=== PATIENT | male | born 1975 | race Caucasian/White ===

== ENCOUNTER 2017-06-20 18:41 | Observation (INO) | payer OTHER ==
[~2017-06-20] VITALS: Ht 190.5 cm; Wt 106.3 kg
[2017-06-20 19:14] VITALS: BP 142/86; PULSE 101; RESP 20; TEMP 99.2; O2SAT 97
--- NOTE | 2017-06-20 20:08 | PD ---
HPI Chief Complaint: Diabetic Time Seen by Provider: 20:01 Travel History International Travel<30 days: No Contact w/Intl Traveler<30days: No Traveled to known affect area: No History of Present Illness HPI This is a 42-year-old male with a history of hypertension, diabetes mellitus, presents today with complaints of blurry vision and elevated blood sugar. Patient states that his blood sugar has been extremely elevated over the last several days. Patient reports that he used to drink several sugary sodas a day. He states that he recently went off of his sodas however despite that he started noticing his blurry vision. He takes metformin 1000 mg twice daily. He reports polyuria and polydipsia. He denies any nausea vomiting. He does report just generalized malaise. PFSH Past Medical History Cardiovascular Problems: Yes (HTN) Diabetes: Yes Social History Tobacco Use: No Allergies-Medications (Allergen,Severity, Reaction): Coded Allergies: amoxicillin (Verified Allergy, Mild, vomiting, 06/20/17) vomiting, fever, sweat Review of Systems Except as stated in HPI: all other systems reviewed are Neg General / Constitutional: No: Fever, Chills Eyes: Positive: Blurred Vision, No: Pain HENT: No: Headaches, Lightheadedness, Neck Pain Cardiovascular: No: Chest Pain or Discomfort, Palpitations Respiratory: No: Cough, Shortness of Breath Gastrointestinal: No: Nausea, Vomiting, Abdominal Pain Genitourinary: Positive: Frequency, No: Dysuria Musculoskeletal: No: Weakness, Edema, Pain Neurologic: No: Weakness, Dizziness, Change in Mentation Endocrine: Positive: Polyuria, Polydipsia Physical Exam Narrative GENERAL: Well-developed well-nourished male in no acute respiratory distress. SKIN: Focused skin assessment warm/dry. HEAD: Atraumatic. Normocephalic. EYES: Pupils equal and round. No scleral icterus. No injection or drainage. ENT: No nasal bleeding or discharge. Mucous membranes pink and dry. NECK: Trachea midline. Supple. CARDIOVASCULAR: Regular rate and rhythm. No murmur appreciated. RESPIRATORY: No accessory muscle use. Clear to auscultation. Breath sounds equal bilaterally. GASTROINTESTINAL: Abdomen soft, non-tender, nondistended. Hepatic and splenic margins not palpable. MUSCULOSKELETAL: No obvious deformities. No clubbing. No cyanosis. No edema. NEUROLOGICAL: Awake and alert. No obvious cranial nerve deficits. Motor grossly within normal limits. Normal speech. Data Data Last Documented VS Vital Signs Date Time Temp Pulse Resp B/P (MAP) Pulse Ox O2 Delivery O2 Flow Rate FiO2 06/20/17 21:17 92 18 136/85 (102) 95 Room Air 06/20/17 19:14 99.2 Orders Orders Complete Blood Count With Diff (06/20/17 20:02) Comprehensive Metabolic Panel (06/20/17 20:02) Urinalysis - C+S If Indicated (06/20/17 20:02) Beta Hydroxybutyrate (Acetone) (06/20/17 20:02) Iv Access Insert/Monitor (06/20/17 20:02) Ecg Monitoring (06/20/17 20:02) Oximetry (06/20/17 20:02) Lactic Acid (06/20/17 20:02) Insulin Human Regular Inj (Novolin R Inj (06/20/17 20:15) Sodium Chlor 0.9% 1000 Ml Inj (Ns 1000 M (06/20/17 20:15) Sodium Chlor 0.9% 1000 Ml Inj (Ns 1000 M (06/20/17 21:00) Insulin Human Regular Inj (Novolin R Inj (06/20/17 21:00) Sodium Chlor 0.9% 1000 Ml Inj (Ns 1000 M (06/20/17 22:00) Blood Glucose Goal (Criteria) (06/20/17 21:55) Hypoglycemia 70 Mg/Dl Or < (06/20/17 21:55) Notify Dr: Other (06/20/17 21:55) Dextrose 50% In [place] (Vial) Inj (D50w (Vi (06/20/17 22:00) Glucagon Inj (Glucagon Inj) (06/20/17 22:00) Insulin Human Reg Supp Scale (Novolin R (06/21/17 08:00) Admit Order (Ed Use Only) (06/20/17 21:56) Labs Laboratory Tests Test 06/20/17 19:50 06/20/17 19:58 Urine Color YELLOW Urine Turbidity CLEAR Urine pH 6.0 Urine Specific [place] LESS/EQUAL 1.005 Urine Protein NEG mg/dL Urine Glucose (UA) 1000 OR GREATER mg/dL Urine Ketones TRACE mg/dL Urine Occult Blood NEG Urine Nitrite NEG Urine Bilirubin NEG Urine Urobilinogen 0.2 MG/DL Urine Leukocyte Esterase NEG Urine RBC 0-3 /hpf Urine WBC 0-2 /hpf Urine Squamous Epithelial Cells 0-5 /hpf Microscopic Urinalysis Comment CULT NOT INDICATED White Blood Count 12.8 TH/MM3 Red Blood Count 5.75 MIL/MM3 Hemoglobin 16.4 GM/DL Hematocrit 47.8 % Mean Corpuscular Volume 83.1 FL Mean Corpuscular Hemoglobin 28.5 PG Mean Corpuscular Hemoglobin Concent 34.3 % Red Cell Distribution Width 12.4 % Platelet Count 249 TH/MM3 Mean Platelet Volume 11.6 FL Neutrophils (%) (Auto) 85.1 % Lymphocytes (%) (Auto) 8.5 % Monocytes (%) (Auto) 5.7 % Eosinophils (%) (Auto) 0.4 % Basophils (%) (Auto) 0.3 % Neutrophils # (Auto) 10.9 TH/MM3 Lymphocytes # (Auto) 1.1 TH/MM3 Monocytes # (Auto) 0.7 TH/MM3 Eosinophils # (Auto) 0.1 TH/MM3 Basophils # (Auto) 0.0 TH/MM3 CBC Comment DIFF FINAL Differential Comment Blood Urea Nitrogen 18 MG/DL Creatinine 1.40 MG/DL Random Glucose 648 MG/DL Total Protein 8.5 GM/DL Albumin 4.5 GM/DL Calcium Level 9.6 MG/DL Alkaline Phosphatase 168 U/L Aspartate Amino Transf (AST/SGOT) 51 U/L Alanine Aminotransferase (ALT/SGPT) 125 U/L Total Bilirubin 0.8 MG/DL Sodium Level 120 MEQ/L Potassium Level 4.1 MEQ/L Chloride Level 81 MEQ/L Carbon Dioxide Level 27.0 MEQ/L Anion Gap 12 MEQ/L Estimat Glomerular Filtration Rate 55 ML/MIN Lactic Acid Level 1.3 mmol/L B-Hydroxybutyrate 1.82 MMOL/L [facility] Medical Decision Making Medical Screen Exam Complete: Yes Emergency Medical Condition: Yes Differential Diagnosis Uncontrolled hyperglycemia versus HONKA versus renal injury Narrative Course 42-year-old male with history of type 2 diabetes mellitus, hypertension, who presents today with complaints of blurry vision, lightheadedness, general malaise. Patient's blood sugar was critically high. Formal blood sugar was 648. He has been given 2 L of IV fluid and a total of 18 units of regular insulin. Despite this his blood sugar still in the 400s. Patient's sodium is also noted to be 120. His BUN and creatinine are also elevated as are his LFTs. The patient will be admitted under observation for blood glucose control and replacement of his sodium. Case was discussed with Dr. Matthieu Jones, [facility], who agrees with the placement. The patient will be placed on a sliding scale. He has been started now at 125 cc of normal saline after 2 L of IV fluids. Diagnosis Primary Impression: Uncontrolled diabetes mellitus with hyperglycemia Additional Impressions: Hyponatremia Kidney injury Elevated liver enzymes Admitting Information Admitting Physician Requests: Observation Puma Monique MD Jun 20, 2017 20:08
[2017-06-20 20:09] VITALS: BP 149/91; PULSE 86; RESP 18; O2SAT 95
[2017-06-20] MEDS ORDERED: INSULIN HUMAN REGULAR 1,000 UNITS/10 ML VIAL IV PUSH ONE ×2 (20:15→21:00)
[2017-06-20] MEDS ORDERED: SODIUM CHLOR 0.9% 1000 ML INJ 1,000 ML IV ONE ×2 (20:15→21:00)
[2017-06-20 20:22] LABS: AUTOMATED NEUTROPHIL # 10.9 TH/MM3 (1.8-7.7); BASOPHIL % 0.3 % (0.0-2.0); EOSINOPHIL # 0.1 TH/MM3 (0-0.4); EOSINOPHIL % 0.4 % (0.0-4.0); HEMATOCRIT 47.8 % (39.0-51.0); HEMOGLOBIN 16.4 GM/DL (13.0-17.0); LYMPH % 8.5 % (9.0-44.0); LYMPHOCYTE # 1.1 TH/MM3 (1.0-4.8); MEAN CELL VOLUME 83.1 FL (80.0-100.0); MEAN CORPUSCULAR HEMOGLOBIN 28.5 PG (27.0-34.0); MEAN CORPUSCULAR HGB CONC 34.3 % (32.0-36.0); MEAN PLATELET VOLUME 11.6 FL (7.0-11.0); MONO % 5.7 % (0.0-8.0); MONOCYTE # 0.7 TH/MM3 (0-0.9); NEUT % 85.1 % (16.0-70.0); PLATELET COUNT 249 TH/MM3 (150-450); RED BLOOD COUNT 5.75 MIL/MM3 (4.50-5.90); RED CELL DISTRIBUTION WIDTH 12.4 % (11.6-17.2); WHITE BLOOD COUNT 12.8 TH/MM3 (4.0-11.0)
[2017-06-20 20:23] LABS: BILIRUBIN, URINE NEG (NEG); BLOOD, URINE NEG (NEG); GLUCOSE,URINE 1000 OR GREATER mg/dL (NEG); KETONE, URINE TRACE mg/dL (NEG); NITRITE,URINE NEG (NEG); URINE COLOR YELLOW (YELLW/STRAW); URINE LEUKOCYTE ESTERASE NEG (NEG)
[2017-06-20 20:35] LABS: RBC, URINE 0-3 /hpf (0-3); SQUAMOUS EPITHELIAL CELL URINE 0-5 /hpf (0-5); WBC, URINE 0-2 /hpf (0-5)
[2017-06-20 20:53] LABS: ALBUMIN 4.5 GM/DL (3.4-5.0); ALKALINE PHOSPHATASE 168 U/L (45-117); ALT (GPT) 125 U/L (12-78); AST (GOT) 51 U/L (15-37); BLOOD UREA NITROGEN 18 MG/DL (7-18); CALCIUM 9.6 MG/DL (8.5-10.1); CHLORIDE 81 MEQ/L (98-107); GLOMERULAR FILTRATION RATE 55 ML/MIN (>89); TOTAL BILIRUBIN ADULT 0.8 MG/DL (0.2-1.0); TOTAL PROTEIN 8.5 GM/DL (6.4-8.2)
[2017-06-20 20:54] LABS: GLUCOSE,RANDOM 648 MG/DL (74-106)
[2017-06-20 20:55] LABS: SODIUM (NA) 120 MEQ/L (136-145)
[2017-06-20 21:17] VITALS: BP 136/85; PULSE 92; RESP 18; O2SAT 95
[2017-06-20] MEDS ORDERED: GLUCAGON 1 MG/ML VIAL OTHER PRN (22:00)
[2017-06-20] MEDS ORDERED: DEXTROSE 50% IN WATER 50 ML VIAL(D50) IV PUSH PRN (22:00)
[2017-06-20 22:14] VITALS: BP 138/79; PULSE 87; RESP 18; O2SAT 95
[2017-06-20] MEDS ORDERED: VENL150C39 PO (22:20)
[2017-06-20] MEDS ORDERED: ABIL10TA8 PO (22:20)
[2017-06-20] MEDS ORDERED: METF1000 PO (22:20)
[2017-06-20] MEDS ORDERED: FOLI400T PO (22:20)
[2017-06-20] MEDS ORDERED: HYDR12.56 PO (22:20)
[2017-06-20] MEDS ORDERED: PRED5PAK PO (22:20)
[2017-06-20] MEDS ORDERED: CEFU1TAB20 PO (22:20)
[2017-06-20] MEDS ORDERED: LISI-515 PO (22:20)
[2017-06-20] MEDS: SODIUM CHLOR 0.9% 1000 ML INJ 1,000 ML IV SCH (22:48)
[2017-06-20] MEDS: INSULIN NovoLIN REGULAR SUPPLEMENTAL SCALE SQ SCH (23:59)
[2017-06-21] MEDS ORDERED: ONDANSETRON HCL 4 MG/2 ML VIAL IVP PRN
[2017-06-21] MEDS ORDERED: NALOXONE HCL 0.4 MG/ML AMP IV PUSH PRN
[2017-06-21] MEDS ORDERED: SENNOSIDES 8.6 MG TAB PO PRN
[2017-06-21] MEDS ORDERED: LACTULOSE SYRUP 20 GM/30 ML CUP PO PRN
[2017-06-21] MEDS ORDERED: BISACODYL 10 MG SUPP RECTAL PRN
[2017-06-21] MEDS ORDERED: MAGNESIUM HYDROXIDE SUSP 30 ML CUP PO PRN
[2017-06-21] MEDS ORDERED: SODIUM CHLORIDE 0.9% FLUSH 10 ML FLUSH IV FLUSH PRN
[2017-06-21] MEDS: SODIUM CHLOR 0.9% 1000 ML INJ 1,000 ML IV SCH ×4 (00:03→12:57)
[2017-06-21 00:04] VITALS: BP 140/82; PULSE 90; RESP 18; O2SAT 96
--- NOTE | 2017-06-21 00:05 | HHI.HP ---
HPI Service [facility] Hospitalists Primary Care Physician Myrtle Kim MD Admission Diagnosis uncontrolled hyperglycemia, hyponatremia, kidney injury Chief Complaint: elevated blood glucose blurred vision today Travel History International Travel<30 Days: No Contact w/Intl Traveler <30 Da: No Traveled to Known Affected Are: No History of Present Illness This is a 42-year-old male with a history of hypertension, diabetes mellitus, presents today with complaints of blurry vision and elevated blood sugar. Patient states that his blood sugar has been extremely elevated over the last several days. Patient reports that he used to drink several sugary sodas a day. He states that he recently went off of his sodas however despite that he started noticing his blurry vision. He takes metformin 1000 mg twice daily. He reports polyuria and polydipsia. He denies any nausea vomiting. He does report just generalized malaise. Patient has not had sugar checked in over 1 year and at that time was 250,he had recent uri sore throat severe and was started on prednisone and ceftin with improvement in sore throat but may be contributing to his elevated glucose. Patient is compliant with his medications . Since treatment in ER feeling a little better was to try and eat something blood sugar at 350 now from >600. Patient states was heavy drinker in past none over 15 years and has liver disease with elevated LFT told had cirrhosis. Review of Systems Eyes: COMPLAINS OF: Blurred vision Gastrointestinal: COMPLAINS OF: Nausea Genitourinary: COMPLAINS OF: Urinary frequency Past Family Social History Past Medical History diabetes,depression ,anxiety recent uri hypertension Past Surgical History none Reported Medications abilify [id number] lisinopril 20 folic acid 1mg Allergies: Coded Allergies: amoxicillin (Verified Allergy, Mild, vomiting, 06/20/17) vomiting, fever, sweat Social History former etoh Physical Exam Vital Signs Vital Signs Date Time Temp Pulse Resp B/P (MAP) Pulse Ox O2 Delivery O2 Flow Rate FiO2 06/20/17 22:14 87 18 138/79 (98) 95 Room Air 06/20/17 21:17 92 18 136/85 (102) 95 Room Air 06/20/17 20:09 86 18 149/91 (110) 95 Room Air 06/20/17 19:40 18 98 Room Air 06/20/17 19:14 99.2 101 20 142/86 (104) 97 Physical Exam GENERAL: This is a well-nourished, well-developed patient, in no apparent distress. SKIN: No rashes, ecchymoses or lesions. Cool and dry. HEAD: Atraumatic. Normocephalic. No temporal or scalp tenderness. EYES: Pupils equal round and reactive. Extraocular motions intact. No scleral icterus. No injection or drainage. ENT: Nose without bleeding, purulent drainage or septal hematoma. Throat without erythema, tonsillar hypertrophy or exudate. Uvula midline. Airway patent. NECK: Trachea midline. No JVD or lymphadenopathy. Supple, nontender, no meningeal signs. CARDIOVASCULAR: Regular rate and rhythm without murmurs, gallops, or rubs. RESPIRATORY: Clear to auscultation. Breath sounds equal bilaterally. No wheezes , rales, or rhonchi. GASTROINTESTINAL: Abdomen soft, non-tender, nondistended. No hepato-splenomegaly , or palpable masses. No guarding. MUSCULOSKELETAL: Extremities without clubbing, cyanosis, or edema. No joint tenderness, effusion, or edema noted. No calf tenderness. Negative Homans sign bilaterally. NEUROLOGICAL: Awake and alert. Cranial nerves II through XII intact. Motor and sensory grossly within normal limits. Five out of 5 muscle strength in all muscle groups. Normal speech. Laboratory Laboratory Tests Test 06/20/17 19:50 06/20/17 19:58 Urine Color YELLOW Urine Turbidity CLEAR Urine pH 6.0 Urine Specific [employer] LESS/EQUAL 1.005 Urine Protein NEG Urine Glucose (UA) 1000 OR GREATER Urine Ketones TRACE Urine Occult Blood NEG Urine Nitrite NEG Urine Bilirubin NEG Urine Urobilinogen 0.2 Urine Leukocyte Esterase NEG Urine RBC 0-3 Urine WBC 0-2 Urine Squamous Epithelial Cells 0-5 Microscopic Urinalysis Comment CULT NOT INDICATED White Blood Count 12.8 Red Blood Count 5.75 Hemoglobin 16.4 Hematocrit 47.8 Mean Corpuscular Volume 83.1 Mean Corpuscular Hemoglobin 28.5 Mean Corpuscular Hemoglobin Concent 34.3 Red Cell Distribution Width 12.4 Platelet Count 249 Mean Platelet Volume 11.6 Neutrophils (%) (Auto) 85.1 Lymphocytes (%) (Auto) 8.5 Monocytes (%) (Auto) 5.7 Eosinophils (%) (Auto) 0.4 Basophils (%) (Auto) 0.3 Neutrophils # (Auto) 10.9 Lymphocytes # (Auto) 1.1 Monocytes # (Auto) 0.7 Eosinophils # (Auto) 0.1 Basophils # (Auto) 0.0 CBC Comment DIFF FINAL Differential Comment Blood Urea Nitrogen 18 Creatinine 1.40 Random Glucose 648 Total Protein 8.5 Albumin 4.5 Calcium Level 9.6 Alkaline Phosphatase 168 Aspartate Amino Transf (AST/SGOT) 51 Alanine Aminotransferase (ALT/SGPT) 125 Total Bilirubin 0.8 Sodium Level 120 Potassium Level 4.1 Chloride Level 81 Carbon Dioxide Level 27.0 Anion Gap 12 Estimat Glomerular Filtration Rate 55 Lactic Acid Level 1.3 B-Hydroxybutyrate 1.82 Result Diagram: 06/20/17195706/20/171957 Course 3liters fluid given in er and sliding scale Caprini VTE Risk Assessment Caprini VTE Risk Assessment: No/Low Risk (score <= 1) Caprini Risk Assessment Model Point Value = 1 Point Value = 2 Point Value = 3 Point Value = 5 Age 41-60 Minor surgery BMI > 25 kg/m2 Swollen legs Varicose veins or History of unexplained or recurrent spontaneous Oral contraceptives or hormone replacement Sepsis (< 1 month) Serious lung disease, including pneumonia (< 1 month) Abnormal pulmonary function Acute myocardial infarction Congestive heart failure (< 1 month) History of inflammatory bowel disease Medical patient at bed rest Age 61-74 Arthroscopic surgery Major open surgery (> 45 min) Laparoscopic surgery (> 45 min) Malignancy Confined to bed (> 72 hours) Immobilizing plaster cast Central venous access Age >= 75 History of VTE Family history of VTE Factor V Leiden Prothrombin [id number] Lupus anticoagulant Anticardiolipin antibodies Elevated serum homocysteine Heparin-induced thrombocytopenia Other congenital or acquired thrombophilia Stroke (< 1 month) Elective arthroplasty Hip, pelvis, or leg fracture Acute spinal cord injury (< 1 month) Prophylaxis Regimen Total Risk Factor Score Risk Level Prophylaxis Regimen 0-1 Low Early ambulation 2 Moderate Order ONE of the following: *Sequential Compression Device (SCD) *Heparin 5000 units SQ BID 3-4 Higher Order ONE of the following medications: *Heparin 5000 units SQ TID *Enoxaparin/Lovenox 40 mg SQ daily (WT < 150 kg, CrCl > 30 mL/min) *Enoxaparin/Lovenox 30 mg SQ daily (WT < 150 kg, CrCl > 10-29 mL/min) *Enoxaparin/Lovenox 30 mg SQ BID (WT < 150 kg, CrCl > 30 mL/min) AND/OR *Sequential Compression Device (SCD) 5 or more Highest Order ONE of the following medications: *Heparin 5000 units SQ TID (Preferred with Epidurals) *Enoxaparin/Lovenox 40 mg SQ daily (WT < 150 kg, CrCl > 30 mL/min) *Enoxaparin/Lovenox 30 mg SQ daily (WT < 150 kg, CrCl > 10-29 mL/min) *Enoxaparin/Lovenox 30 mg SQ BID (WT < 150 kg, CrCl > 30 mL/min) AND *Sequential Compression Device (SCD) Assessment and Plan Problem List: (1) Uncontrolled diabetes mellitus with hyperglycemia ICD Codes: E11.65 - Type 2 diabetes mellitus with hyperglycemia Status: Acute Plan: continue IV fluid and sliding scale follow up labs in am (2) Elevated liver enzymes ICD Codes: R74.8 - Abnormal levels of other serum enzymes Status: Chronic Plan: will recheck labs and will get abdominal ultrasound (3) Hyponatremia ICD Codes: E87.1 - Hypo-osmolality and hyponatremia Status: Acute Plan: IV fluid follow up labs (4) Kidney injury ICD Codes: S37.009A - Unspecified injury of unspecified kidney, initial encounter Status: Acute Plan: iv fluid follow up labs Assessment and Plan further plan as case develops Code Status full Discussed Condition With patient and Matthieu Jones MD Jun 21, 2017 00:05
[2017-06-21 00:30] VITALS: BP 167/101; PULSE 73; RESP 18; TEMP 98.2; O2SAT 98
[2017-06-21 04:00] VITALS: BP 157/94; PULSE 71; RESP 18; TEMP 97.5; O2SAT 97
[2017-06-21 07:50] LABS: AUTOMATED NEUTROPHIL # 7.5 TH/MM3 (1.8-7.7); BASOPHIL % 0.2 % (0.0-2.0); EOSINOPHIL # 0.2 TH/MM3 (0-0.4); EOSINOPHIL % 1.4 % (0.0-4.0); HEMATOCRIT 43.4 % (39.0-51.0); HEMOGLOBIN 14.3 GM/DL (13.0-17.0); LYMPH % 24.9 % (9.0-44.0); LYMPHOCYTE # 2.8 TH/MM3 (1.0-4.8); MEAN CELL VOLUME 84.2 FL (80.0-100.0); MEAN CORPUSCULAR HEMOGLOBIN 27.8 PG (27.0-34.0); MEAN PLATELET VOLUME 10.9 FL (7.0-11.0); MONO % 6.6 % (0.0-8.0); MONOCYTE # 0.7 TH/MM3 (0-0.9); NEUT % 66.9 % (16.0-70.0); PLATELET COUNT 191 TH/MM3 (150-450); RED BLOOD COUNT 5.15 MIL/MM3 (4.50-5.90); RED CELL DISTRIBUTION WIDTH 12.5 % (11.6-17.2); WHITE BLOOD COUNT 11.2 TH/MM3 (4.0-11.0)
[2017-06-21 08:25] LABS: ALBUMIN 3.6 GM/DL (3.4-5.0); ALKALINE PHOSPHATASE 95 U/L (45-117); ALT (GPT) 94 U/L (12-78); AST (GOT) 34 U/L (15-37); BICARBONATE 26.4 MEQ/L (21.0-32.0); BLOOD UREA NITROGEN 15 MG/DL (7-18); CALCIUM 8.2 MG/DL (8.5-10.1); CHLORIDE 94 MEQ/L (98-107); CREATININE 0.92 MG/DL (0.60-1.30); GLOMERULAR FILTRATION RATE 89 ML/MIN (>89); GLUCOSE,RANDOM 263 MG/DL (74-106); SODIUM (NA) 130 MEQ/L (136-145); TOTAL BILIRUBIN ADULT 0.7 MG/DL (0.2-1.0)
[2017-06-21 08:50] VITALS: BP 161/100; PULSE 84; TEMP 96.6; O2SAT 98
[2017-06-21] MEDS ORDERED: LISINOPRIL 20 MG TAB PO SCH (09:00)
[2017-06-21] MEDS ORDERED: DOCUSATE SODIUM 50 MG/SENNA 8.6 MG TAB PO SCH (09:00)
[2017-06-21] MEDS ORDERED: FOLIC ACID 1 MG TAB PO SCH (09:00)
[2017-06-21] MEDS ORDERED: VENLAFAXINE HCL XR 75 MG CAP PO SCH (09:00)
[2017-06-21] MEDS ORDERED: ARIPiprazole 10 MG TAB PO SCH (09:00)
[2017-06-21] MEDS ORDERED: SODIUM CHLORIDE 0.9% FLUSH 10 ML FLUSH IV FLUSH SCH (09:00)
[2017-06-21] MEDS ORDERED: CEFUROXIME AXETIL 500 MG TAB PO SCH (09:00)
--- NOTE | 2017-06-21 09:10 | RADRPT ---
EXAM DATE/TIME: 06/21/2017 07:54 [place] COMPARISON: No previous studies available for comparison. INDICATIONS : Elevated LFT's. ton. MEDICAL HISTORY : Hypertension. Diabetes mellitus type 2. SURGICAL HISTORY : Right hand surgery. ENCOUNTER: Initial ACUITY: 2 days PAIN SCORE: 1/10 LOCATION: Bilateral upper quadrant MEASUREMENTS: LIVER: 19.6 cm cm length COMMON DUCT: 7 mm RIGHT KIDNEY: 12.3 x 5.3 x 5.6 cm LEFT KIDNEY: 12.6 x 6.3 x 6.8 cm SPLEEN: 11.5 cm length AORTA: 2.2cm maximal FINDINGS: LIVER: Diffusely increased echogenicity suggesting steatosis. No focal mass. No biliary ductal dilatation. COMMON DUCT: No intraluminal mass or stone visualized. GALLBLADDER: Contains no stones, demonstrates no wall thickening or pericholecystic fluid. PANCREAS: The visualized portions are within normal limits. RIGHT KIDNEY: No hydronephrosis, stone or mass. LEFT KIDNEY: No hydronephrosis, stone or mass. SPLEEN: No focal lesion. AORTA: Non aneurysmal. IVC: Within normal limits. CONCLUSION: Increased hepatic echogenicity suggesting steatosis. Isidro Austin MD on June 21, 2017 at 9:03 Board Certified Radiologist. This report was verified electronically.
[2017-06-21] MEDS ORDERED: metFORMIN HCL 500 MG TAB PO ONE (10:45)
--- NOTE | 2017-06-21 10:58 | HHI.PR ---
Subjective Remarks Patient feeling better some blurred vision ,glucose at 268 ,kidney function back to normal ,liver function improved ,will restart metformin if high as out patient consider adding jardiance discussed diet compliance with patient ,as still with some blurred vision will but now just to watching tv will need to see Ophthalmology as out patient also WBC count improved. Objective Vitals GENERAL: SKIN: Warm and dry. HEAD: Atraumatic. Normocephalic. EYES: Pupils equal and round. No scleral icterus. No injection or drainage. ENT: No nasal bleeding or discharge. Mucous membranes pink and moist. NECK: Trachea midline. No JVD. CARDIOVASCULAR: Regular rate and rhythm. RESPIRATORY: No accessory muscle use. Clear to auscultation. Breath sounds equal bilaterally. GASTROINTESTINAL: Abdomen soft, non-tender, nondistended. Hepatic and splenic margins not palpable. MUSCULOSKELETAL: Extremities without clubbing, cyanosis, or edema. No obvious deformities. NEUROLOGICAL: Awake and alert. No obvious cranial nerve deficits. Motor grossly within normal limits. Five out of 5 muscle strength in the arms and legs. Normal speech. PSYCHIATRIC: Appropriate mood and affect; insight and judgment normal. Vital Signs Date Time Temp Pulse Resp B/P (MAP) Pulse Ox O2 Delivery O2 Flow Rate FiO2 06/21/17 08:50 96.6 84 161/100 (120) 98 06/21/17 04:00 97.5 71 18 157/94 (115) 97 06/21/17 00:30 98.2 73 18 167/101 (123) 98 06/21/17 00:15 90 18 96 06/21/17 00:04 90 18 140/82 (101) 96 Room Air 06/20/17 22:14 87 18 138/79 (98) 95 Room Air 06/20/17 21:17 92 18 136/85 (102) 95 Room Air 06/20/17 20:09 86 18 149/91 (110) 95 Room Air 06/20/17 19:40 18 98 Room Air 06/20/17 19:14 99.2 101 20 142/86 (104) 97 06/21/17 06/21/17 06/22/17 15:00 23:00 07:00 Intake Total 240 ml Balance 240 ml Intake Oral 240 ml Result Diagram: 06/21/1770406/21/17704 A/P Problem List: (1) Uncontrolled diabetes mellitus with hyperglycemia ICD Codes: E11.65 - Type 2 diabetes mellitus with hyperglycemia Status: Acute Plan: labs improved will d/c iv diet given restart metformin (2) Elevated liver enzymes ICD Codes: R74.8 - Abnormal levels of other serum enzymes Status: Chronic Plan: LFT improved ultrasound pending (3) Hyponatremia ICD Codes: E87.1 - Hypo-osmolality and hyponatremia Status: Acute Plan: IV fluid follow up labs has improved to 130 (4) Kidney injury ICD Codes: S37.009A - Unspecified injury of unspecified kidney, initial encounter Status: Acute Plan: resolved Assessment and Plan possible discharge later today Discharge Planning f/u pcp has appt tuesday Matthieu Jones MD Jun 21, 2017 10:58
[2017-06-21 12:00] VITALS: BP 152/96; PULSE 99; RESP 18; TEMP 98.9; O2SAT 97
[2017-06-21] MEDS: INSULIN NovoLIN REGULAR SUPPLEMENTAL SCALE SQ SCH ×2 (12:00→15:18)
--- NOTE | 2017-06-21 14:56 | HHI.DS ---
Discharge Summary Admission Date Jun 20, 2017 at 21:57 Admitting Diagnosis uncontrolled hyperglycemia, hyponatremia, kidney injury (1) Uncontrolled diabetes mellitus with hyperglycemia Diagnosis: Principal ICD Codes: E11.65 - Type 2 diabetes mellitus with hyperglycemia Status: Acute (2) Elevated liver enzymes Diagnosis: Secondary ICD Codes: R74.8 - Abnormal levels of other serum enzymes Status: Chronic (3) Hyponatremia Diagnosis: Secondary ICD Codes: E87.1 - Hypo-osmolality and hyponatremia Status: Acute (4) Kidney injury Diagnosis: Secondary ICD Codes: S37.009A - Unspecified injury of unspecified kidney, initial encounter Status: Acute Brief History This is a 42-year-old male with a history of hypertension, diabetes mellitus, presents today with complaints of blurry vision and elevated blood sugar. Patient states that his blood sugar has been extremely elevated over the last several days. Patient reports that he used to drink several sugary sodas a day. He states that he recently went off of his sodas however despite that he started noticing his blurry vision. He takes metformin 1000 mg twice daily. He reports polyuria and polydipsia. He denies any nausea vomiting. He does report just generalized malaise. Patient has not had sugar checked in over 1 year and at that time was 250,he had recent uri sore throat severe and was started on prednisone and ceftin with improvement in sore throat but may be contributing to his elevated glucose. Patient is compliant with his medications . Since treatment in ER feeling a little better was to try and eat something blood sugar at 350 now from >600. Patient states was heavy drinker in past none over 15 years and has liver disease with elevated LFT told had cirrhosis. CBC/BMP: 06/21/17 0705 06/21/17 0705 Significant Findings Laboratory Tests Test 06/20/17 19:50 06/20/17 19:58 06/21/17 07:05 Urine Glucose (UA) 1000 OR GREATER mg/dL Urine Ketones TRACE mg/dL (NEG) White Blood Count 12.8 TH/MM3 (4.0-11.0) 11.2 TH/MM3 (4.0-11.0) Mean Platelet Volume 11.6 FL (7.0-11.0) Neutrophils (%) (Auto) 85.1 % (16.0-70.0) Lymphocytes (%) (Auto) 8.5 % (9.0-44.0) Neutrophils # (Auto) 10.9 TH/MM3 (1.8-7.7) Creatinine 1.40 MG/DL (0.60-1.30) Random Glucose 648 MG/DL (74-106) 263 MG/DL (74-106) Total Protein 8.5 GM/DL (6.4-8.2) Alkaline Phosphatase 168 U/L (45-117) Aspartate Amino Transf (AST/SGOT) 51 U/L (15-37) Alanine Aminotransferase (ALT/SGPT) 125 U/L (12-78) 94 U/L (12-78) Sodium Level 120 MEQ/L (136-145) 130 MEQ/L (136-145) Chloride Level 81 MEQ/L (98-107) 94 MEQ/L (98-107) Estimat Glomerular Filtration Rate 55 ML/MIN (>89) B-Hydroxybutyrate 1.82 MMOL/L (0.00-0.39) 1.49 MMOL/L (0.00-0.39) Calcium Level 8.2 MG/DL (8.5-10.1) PE at Discharge GENERAL: SKIN: Warm and dry. HEAD: Atraumatic. Normocephalic. EYES: Pupils equal and round. No scleral icterus. No injection or drainage. ENT: No nasal bleeding or discharge. Mucous membranes pink and moist. NECK: Trachea midline. No JVD. CARDIOVASCULAR: Regular rate and rhythm. RESPIRATORY: No accessory muscle use. Clear to auscultation. Breath sounds equal bilaterally. GASTROINTESTINAL: Abdomen soft, non-tender, nondistended. Hepatic and splenic margins not palpable. MUSCULOSKELETAL: Extremities without clubbing, cyanosis, or edema. No obvious deformities. NEUROLOGICAL: Awake and alert. No obvious cranial nerve deficits. Motor grossly within normal limits. Five out of 5 muscle strength in the arms and legs. Normal speech. PSYCHIATRIC: Appropriate mood and affect; insight and judgment normal. Hospital Course patient admitted with elevated glucose >600 with history of dm on metfromin 1000 bid who had recent uri and was started on prednisone which could have elevated blood glucose ,however patient does not check sugars and last check over 2 years ago and was 250 ,discussion with compliance with patient and . We also discussed diabetic care with eyes and dietary and have made referrals for both also discussed with PCP who will follow up patient and have labs including A1C for thursday and will get patient thru [facility] glucometer and test strips they are aware how to check sugars ,i feel will probably need to add additional blood sugar medication. Patient did receive IV novolog and IV fluid . renal function normalized as did improvement in liver function sodium still low at 130 was 120 and has follow up lab for . Patient anxious and does not want to stay another day in hospital and will discharge home today, and they can call my office or Primary office with any problems or questions. Pt Condition on Discharge: Good Discharge Disposition: Discharge Home Discharge Instructions DIET: Follow Instructions for: Diabetic Diet Activities you can perform: Regular-No Restrictions Continued Medications: Aripiprazole (Abilify) 10 Mg Tab 10 MG PO DAILY, #30 TAB 0 Refills Cefuroxime (Cefuroxime) 500 Mg Tab 500 MG PO BID for Infection, TAB 0 Refills Folic Acid (Folic Acid) 0.4 Mg Tab 1 MG PO DAILY for Nutritional Supplement, TAB 0 Refills Lisinopril (Lisinopril) 20 Mg Tab 20 MG PO DAILY, #30 TAB 0 Refills Metformin (Metformin) 1,000 Mg Tab 1000 MG PO BIDPC for Blood Sugar Management, #60 TAB 0 Refills Venlafaxine ER 24 HR (Venlafaxine ER 24 HR) 150 Mg Cap 150 MG PO DAILY, #30 CAP 0 Refills Discontinued Medications: Hydrochlorothiazide (Hydrochlorothiazide) 12.5 Mg Tab 12.5 MG PO DAILY, #30 TAB 0 Refills Prednisone (21) 5 mg tab Dose Pack (Prednisone (21) 5 mg tab Dose Pack) 5 Mg Dspk 5 MG PO DIRECTED for Inflammation, #1 DSPK 0 Refills Additional Information follow up optho,diabetic ed glucometer test strips lab work fopr Matthieu Jones MD Jun 21, 2017 14:56
[2017-06-21] MEDS ORDERED: metFORMIN HCL 500 MG TAB PO SCH (18:00)
== END 2017-06-21 15:42 | disposition home or self-care (01) ==
LOC: PHED 18:41 → EDSEX 18:41 → PHEDA 21:57 → PH3A 06-21 00:24
PROVIDERS: ADMIT Internal Medicine; ATTEND Internal Medicine
DX: E11.65 Type 2 diabetes mellitus with hyperglycemia (principal); R74.8 Abnormal levels of other serum enzymes; I10 Essential (primary) hypertension; E87.1 Hypo-osmolality and hyponatremia; K74.60 Unspecified cirrhosis of liver; N17.9 Acute kidney failure, unspecified; F41.9 Anxiety disorder, unspecified; F32.9 Major depressive disorder, single episode, unspecified
CPT/HCPCS: 76700; 80053; 81001; 82010; 82948; 83605; 85025; 96360; 96361; 96372; 99285; G0378; J1815; J7030